=== PATIENT | male | born 2000 | race Caucasian/White ===

== ENCOUNTER → 2019-09-09 15:13 | Outpatient (CLI) | payer SELFPAY ==
[2019-09-09 18:16] LABS: Hepatitis B Surface Antigen NEGATIVE s/c (NEGATIVE)
[2019-09-09 18:27] LABS: Urine N gonorrhoeae NOT DETECTED
[2019-09-09 18:31] LABS: Urine Chlamydia DETECTED
[2019-09-09 18:33] LABS: HIV 1 & 2 Ab/Ag 4th Gen Combo NEGATIVE (NEGATIVE); Hep C Virus Ab w/Reflex Quant NEGATIVE s/c (NEGATIVE)
[2019-09-10 05:36] LABS: RPR Screen Non Reactive (Non Reactive)
== END ==
PROVIDERS: Referring Provider Family Medicine; Visit Provider Family Medicine
DX: Z11.3 Encounter for screening for infections with a predominantly sexual mode of transmission (principal)
CPT/HCPCS: 36415; 86592; 86803; 87340; 87389; 87491; 87591